=== PATIENT | female | born 1995 | race Caucasian/White ===

== ENCOUNTER 2016-09-04 22:47 | Emergency (ER) | payer BC ==
[~2016-09-04] VITALS: Ht 165.1 cm; Wt 99.9 kg
[~2016-09-04 22:47] MED LIST: IRON
[2016-09-04 23:14] VITALS: BP 141/95
[2016-09-04] MEDS ORDERED: HYDROCHLOROTHIA25 MG PO ×2 (23:19→23:24)
== END 2016-09-05 01:24 | disposition left against medical advice (07) ==
LOC: EME 22:47
DX: R03.0 Elevated blood-pressure reading, without diagnosis of hypertension (principal)
CPT/HCPCS: 99281; 99282

== ENCOUNTER 2016-10-31 15:02 | Emergency (ER) | payer BC ==
[~2016-10-31] VITALS: Ht 165.1 cm; Wt 103.7 kg
[~2016-10-31 15:02] MED LIST changes: +HYDROCHLOROTHIA25 MG PO
[2016-10-31 17:24] VITALS: BP 125/85
== END 2016-10-31 17:25 | disposition home or self-care (01) ==
LOC: EME 15:02
DX: F32.9 Major depressive disorder, single episode, unspecified (principal); F41.0 Panic disorder [episodic paroxysmal anxiety]
CPT/HCPCS: 90839; 99281; 99282